=== PATIENT | female | born 1965 | race Two or more races ===

== ENCOUNTER 2018-10-29 21:42 | Emergency (ER) | payer OTHER ==
[~2018-10-29] VITALS: Ht 157.5 cm; Wt 81.6 kg
[2018-10-29] MEDS ORDERED: JARDIANCE10 MG (22:30)
== END 2018-10-30 02:06 | disposition home or self-care (01) ==
LOC: ER 21:42
DX: M62.838 Other muscle spasm (principal); M25.512 Pain in left shoulder

== ENCOUNTER 2024-11-28 07:53 | Emergency (ER) | payer OTHER ==
[~2024-11-28] VITALS: Ht 157.5 cm; Wt 76.2 kg
[~2024-11-28 07:53] MED LIST: JARDIANCE10 MG
[2024-11-28] MEDS ORDERED: METFORMIN HCL500 M3 (07:59)
[2024-11-28] MEDS ORDERED: INSULIN GLARGINE,HUM.REC.ANLOG 1,000 UNITS/10 ML UNITS SUBCUTANEO ONE (09:45)
[2024-11-28] MEDS ORDERED: 0.9 % SODIUM CHLORIDE 1,000 ML IV ONE (09:45)
[2024-11-28] MEDS ORDERED: INSULIN REGULAR, HUMAN 1,000 UNIT/10 ML UNITS SUBCUTANEO ONE (09:45)
[2024-11-28] MEDS ORDERED: KETOROLAC TROMETHAMINE 30 MG VIAL IV ONE (09:45)
[2024-11-28 10:09] LABS: BASO % 0.7 % (0.1-1.2); EOS # 0.10 (0.04-0.54); EOS % 1.2 % (0.7-7.0); LYMPH # 1.93 (1.18-3.74); LYMPH % 22.4 % (19.3-53.1); MEAN PLATELET VOLUME 11.50 fl (9.4-12.4); MONO # 0.86 (0.24-0.82); MONO % 10.0 % (4.7-12.5); NEUT # 5.66 (1.56-6.13); NEUT % 65.5 % (34.0-71.1); RED CELL DISTRIBUTION WIDTH 11.8 % (11.6-14.4)
[2024-11-28 10:27] LABS: URINE APPEARANCE Clear; URINE BILIRRUBIN Negative (NEGATIVE); URINE BLOOD Negative; URINE COLOR Yellow; URINE KETONE 15 (NEGATIVE); URINE LEUKOCYTE Negative; URINE NITRATE Negative; URINE PROTEIN Negative (NEGATIVE); URINE UROBILINOGEN 0.2 E.U./dl
[2024-11-28 10:28] LABS: URINE BACTERIA 19.1 uL (0.0-1933); URINE EPITHELIAL CELLS 1.8 uL (0.0-38.8); URINE RBC 3.5 uL (0.0-20.8); URINE WBC 9.8 uL (0.0-23.2)
[2024-11-28 10:37] LABS: URINE CAST 0.00 uL (0.0-1.40); URINE GLUCOSE >=1000 MG/DL (NEGATIVE)
[2024-11-28 10:53] LABS: ALT/SGPT 29.0 U/L (12-78); AST/SGOT 20.0 U/L (15-37); BILIRUBIN TOTAL 0.6 mg/dL (0.3-1.2); BUN CREA RATIO 16.0 (7.0-25.0); CREATININE SERUM 0.74 mg/dL (0.55-1.02); GFR 80.89; GLOBULINA 4.5 G/DL (2.4-3.5); GLUCOSE FASTING 373.0 mg/dL (65-100); OSMOLALITY SERUM 294.0 MOSM/KG (275-295)
[2024-11-28] MEDS ORDERED: NORFLEX100MG PO (11:18)
== END 2024-11-28 12:09 | disposition home or self-care (01) ==
LOC: ER 07:53
PROVIDERS: General Practice
DX: K52.89 Other specified noninfective gastroenteritis and colitis (principal); R10.9 Unspecified abdominal pain; I10 Essential (primary) hypertension